=== PATIENT | male | born 1990 | race African-American/Black ===

== ENCOUNTER 2017-12-06 13:04 | Emergency (ER) | payer SELFPAY ==
[~2017-12-06] VITALS: Ht 165.1 cm; Wt 68.0 kg
[2017-12-06 13:05] VITALS: BP 134/76; PULSE 64; RESP 16; TEMP 98; O2SAT 98
[2017-12-06] MEDS ORDERED: CEPH-460 PO (14:14)
[2017-12-06] MEDS ORDERED: BACT800T5 PO (14:14)
[2017-12-06] MEDS ORDERED: IBUP1TAB7 PO (14:14)
--- NOTE | 2017-12-06 14:14 | PD ---
HPI Chief Complaint: Skin Problem Time Seen by Provider: 14:08 Travel History International Travel<30 days: No Contact w/Intl Traveler<30days: No Traveled to known affect area: No History of Present Illness HPI 27-year-old male presents to the emergency Department with complaint of an abscess to his right temporal area with worsening 5 days. Reports swelling to the underneath his right eye. Denies change in vision. Denies trauma. Denies fever, vomiting. Says it started out as a pimple. Has not taken any medication to alleviate his symptoms. Tried popping it yesterday without success. Rates pain 5/10. Describes it as a throbbing sensation. Pain is worse when he lays on it to try to sleep. Better when not aggravated. Denies significant past medical history. No primary care provider. No known allergies. Has no other medical complaints. No other modifying factors or associated signs and symptoms. PFSH Social History Tobacco Use: No Allergies-Medications (Allergen,Severity, Reaction): Coded Allergies: No Known Allergies (Unverified , 12/06/17) Reported Meds & Prescriptions Reported Meds & Active Scripts Active Bactrim DS (Sulfamethoxazole-Trimethoprim) 800-160 Mg Tab 1 Tab PO BID 10 Days Ibuprofen 800 Mg Tab 800 Mg PO Q6HR PRN Keflex (Cephalexin) 500 Mg Cap 500 Mg PO Q6H 10 Days Review of Systems Except as stated in HPI: all other systems reviewed are Neg Physical Exam Narrative GENERAL: Well-nourished, well-developed black male patient, in no acute distress ; afebrile, nontoxic-appearing SKIN: There is an indurated area to the right temporal area which measures about 1.5 cm in diameter. It is fluctuant but there is no pointing or drainage. There is minimal inflammation around it and no lymphadenopathy. Minimal edema noted under the right eye. No orbital tenderness on palpation. No orbital cellulitis, erythema. HEAD: Atraumatic. Normocephalic. EYES: Pupils equal and round. No scleral icterus. No injection or drainage. ENT: Mucosa pink and moist. Airway patent. NECK: Trachea midline. CARDIOVASCULAR: Regular rate. RESPIRATORY: No accessory muscle use. GASTROINTESTINAL: Flat. MUSCULOSKELETAL: No obvious deformities. No clubbing. No cyanosis. No edema. NEUROLOGICAL: Awake and alert. Oriented 3. No obvious cranial nerve deficits. Motor grossly within normal limits. Normal speech. PSYCHIATRIC: Appropriate mood and affect; insight and judgment normal. Data Data Last Documented VS Vital Signs Date Time Temp Pulse Resp B/P (MAP) Pulse Ox O2 Delivery O2 Flow Rate FiO2 12/06/17 13:05 98.0 64 16 134/76 (95) 98 Room Air Orders Orders Ed Discharge Order (12/06/17 14:14) Lidocaine 1% Inj (Xylocaine 1% Inj) (12/06/17 14:15) Ibuprofen (Motrin) (12/06/17 14:15) Wound Culture And Gram Stain (12/06/17 14:16) Sulfamet-Trimeth Ds 800-160 Mg (Bactrim (12/06/17 14:30) Cephalexin (Keflex) (12/06/17 14:30) MDM Medical Decision Making Medical Screen Exam Complete: Yes Emergency Medical Condition: Yes Medical Record Reviewed: Yes Differential Diagnosis Abscess, folliculitis, cyst Narrative Course 27-year-old male with an right temporal facial abscess. He is afebrile and nontoxic-appearing. There is some swelling under his right eye. No orbital tenderness or cellulitis. See my procedure note for incision and drainage. Wound culture pending. Bactrim, Keflex, ibuprofen administered in the ER. Bactrim, Keflex prescribed for home. Instructed patient to follow up with primary care provider. Patient verbalizes understanding and agreement with treatment plan. Patient is medically cleared and stable for discharge. Discussed reasons to return to the emergency department. Patient agrees with treatment plan. The patients vital signs are stable and the patient is stable for outpatient follow-up and treatment. Patient discharged home, stable and in no acute distress. Procedures Procedure Narrative INCISION AND DRAINAGE OF ABSCESS: The area was prepped and was sterilely draped. A subcutaneous wheal of 1 % Xylocaine with a total number 0.5 mL was used to anesthetize the area properly. A number 11 scalpel was used to make a pinpoint incision into the area of the abscess. The abscess was drained, complex loculations were broken down, and irrigated with normal saline. Cultures were obtained. Sterile dressing applied. Diagnosis Primary Impression: Facial abscess Referrals: [facility] Primary Care Physician Patient Instructions: Abscess (ED), Abscess Follow-up (ED), Abscess Incision and Drainage (DC), General Instructions Departure Forms: Tests/Procedures, Work Release Enter return to work date: Dec 07, 2017 Additional Instructions: Complete full course of antibiotics Warm compresses to the affected area Keep area clean and dry Ibuprofen or Tylenol as directed and as needed for pain and inflammation Follow-up with primary care provider Return to emergency department immediately with worsening of symptoms Med/Other Pt SpecificInfo: Prescription(s) given Scripts Sulfamethoxazole-Trimethoprim (Bactrim DS) 800-160 Mg Tab 1 TAB PO BID for Infection for 10 Days, #20 TAB 0 Refills Prov: Amanda Meneses 12/06/17 Ibuprofen (Ibuprofen) 800 Mg Tab 800 MG PO Q6HR Y for PAIN, #20 TAB 0 Refills Prov: Amanda Meneses 12/06/17 Cephalexin (Keflex) 500 Mg Cap 500 MG PO Q6H for Infection for 10 Days, #40 CAP 0 Refills Prov: Amanda Meneses 12/06/17 Disposition: 01 DISCHARGE HOME Condition: Stable Amanda Meneses Dec 06, 2017 14:14
[2017-12-06] MEDS ORDERED: LIDOCAINE HCL 1% 20 ML VIAL INFIL ONE (14:15)
[2017-12-06] MEDS ORDERED: IBUPROFEN 800 MG TAB PO ONE (14:15)
[2017-12-06] MEDS ORDERED: CEPHALEXIN MONOHYDRATE 500 MG CAP PO ONE (14:30)
[2017-12-06] MEDS ORDERED: SULFAMETHOXAZOLE-TRIMETHOPRIM DS 800-160 MG TAB PO ONE (14:30)
== END 2017-12-06 14:47 | disposition home or self-care (01) ==
LOC: NEPD 13:04
DX: L02.01 Cutaneous abscess of face (principal)
CPT/HCPCS: 10060; 86403; 87070; 87205